=== PATIENT | male | born 1990 | race Caucasian/White ===

== ENCOUNTER 2023-06-09 23:08 | Emergency (ER) | payer OTHER, SELFPAY ==
--- NOTE | ~2023-06-09 | XR_ITS ---
XR foot RT min 3V 06/09/2023 23:50 INDICATION: Right foot pain after injury PROCEDURE: 5 views right foot COMPARISON: No prior studies for comparison. FINDINGS: Fracture, dislocation or subluxation is not identified. The soft tissues appear within norm al limits. No foreign bodies are identified. IMPRESSION: 1: NO ACUTE BONE OR JOINT ABNORMALITY IDENTIFIED. Reviewed, dictated and finalized at location A.
[2023-06-09 23:26] VITALS: BP 130/70; PULSE 93; RESP 19; TEMP 36.7; O2SAT 99
--- NOTE | 2023-06-10 01:05 | ED.LOWEXIN ---
HPI - Extremity Injury (Lower) General Chief Complaint: Extremity Injury, Lower Stated Complaint: Right foot pain Time Seen by Provider: 06/10/23 00:15 Source: patient Mode of arrival: ambulatory Limitations: no limitations History of Present Illness HPI Narrative: Patient is a 32-year-old male who presents to the ED with report of right foot pain. Patient reports he was playing ice hockey tonight and blocked a slab With his right foot. He was hit in his right medial foot. He has been able to walk since then, but complains of pain. He took ibuprofen prior to arrival. He denies any numbness or tingling. No other injuries. Related Data Allergies Allergy/AdvReac Type Severity Reaction Status Date / Time No Known Allergies Allergy Verified 06/10/23 00:15 Review of Systems Review of Systems: CONSTITUTIONAL: Denies fever, chills, or sweats. MUSCULOSKELETAL: See HPI. NEUROLOGIC: Denies tingling, numbness, or weakness. All systems reviewed & are unremarkable except as noted in HPI and below Exam Narrative: GENERAL: Well appearing, well-nourished, non-toxic, in no acute distress. HEAD: Normocephalic, atraumatic. NECK: Supple. No adenopathy, no masses. RESPIRATORY: Airway patent, respirations nonlabored. CARDIOVASCULAR: Regular rate and rhythm without murmurs, rubs, or gallops. Pedal pulses 2+ and equal bilaterally. MUSCULOSKELETAL: Moves all extremities. Tenderness to palpation, area of contusion/ecchymosis to right medial foot, along distal arch. No wounds or lacerations. No tenderness throughout remainder of foot, heel, or achilles. SKIN: Warm, dry, normal color. No rashes. NEURO: A&O X3. Speech clear. Cranial nerves II-XII grossly intact. Steady gait. No ataxic movements. PSYCHIATRIC: Appropriate mood and affect. Normal interaction. Course Vital Signs Vital signs: Vital Signs Temperature 98.1 F 06/09/23 23:26 Pulse Rate 93 06/09/23 23:26 Respiratory Rate 19 06/09/23 23:26 Blood Pressure 130/70 06/09/23 23:26 Pulse Oximetry 99 06/09/23 23:26 Oxygen Delivery Room Air 06/09/23 23:26 Temperature 98.1 F 06/09/23 23:26 Pulse Rate 93 06/09/23 23:26 Respiratory Rate 19 06/09/23 23:26 Blood Pressure 130/70 06/09/23 23:26 Pulse Oximetry 99 06/09/23 23:26 Oxygen Delivery Room Air 06/09/23 23:26 MDM - Extremity Injury (Lower) MDM Narrative Medical decision making narrative: Patient's injury is consistent with musculoskeletal etiology. No signs of neurologic or vascular compromise on physical examination. Compartments are soft without signs of compartment syndrome. XR of right foot interpreted by myself without evidence for fracture. Patient able to ambulate. Patient is felt to be stable for discharge home and further outpatient management and treatment. Given aaron bandage, placed in post-op shoe. Advised tylenol/ibuprofen. Will provide referral to podiatry and ortho if needed. Return precautions given. D/C in stable condition. Medical Records Attestation: I reviewed the patient's medical records. Imaging Data Attestation: I personally reviewed and interpreted this imaging study as follows: My impression: XR R foot: No acute osseous abnormality. Discharge Plan Discharge Clinical Impression: Contusion of right foot Qualifiers: Encounter type: initial encounter Qualified Code(s): S90.31XA - Contusion of right foot, initial encounter Patient Disposition: Home, Self-Care Condition: Stable Instructions: Antibiotic Form, Foot Contusion (ED) Additional Instructions: Your x-ray did not show any evidence for fractures. Recommend rest, ice, elevation of right leg Aaron bandage for support, postop shoe for assistance with walking. Continue Tylenol and ibuprofen/naproxen as needed for pain. Follow up with orthopedics or podiatry if needed for further evaluation. Return if you experience worsening or severe pain, unable to walk, recurrent injury, numbness, or any other
[2023-06-10 01:35] VITALS: RESP 17
--- NOTE | 2023-06-10 01:50 | PC.NURSE ---
STATUS BOARD NOTIFICATIONS DID NOT INDICATE INTERVENTIONS NEEDED AT TIME OF DISCHARGE. THIS RN D/C'D THIS PT AT 0135 ON 06/10/2023 WITHOUT APPLYING ICE PACK, POST-OP SHOE, AND/OR MORALES WRAP ORDERED BY CHRIS.
== END 2023-06-10 01:35 | disposition home or self-care (01) ==
PROVIDERS: Emergency Provider Physician Assistant
DX: S90.31XA Contusion of right foot, initial encounter (principal); W21.220A Struck by ice hockey puck, initial encounter
CPT/HCPCS: 73630; 99283